=== PATIENT | male | born 1980 | race Caucasian/White ===

== ENCOUNTER 2016-11-09 18:58 | Emergency (ER) | payer SELFPAY ==
[~2016-11-09] VITALS: Ht 177.8 cm; Wt 97.7 kg
[2016-11-09 19:00] VITALS: BP 161/106; PULSE 71; RESP 18; TEMP 98.3; O2SAT 97
[2016-11-09] MEDS ORDERED: SODIUM CHLOR 0.9% 1000 ML INJ 1,000 ML IV SCH (19:28)
[2016-11-09] MEDS ORDERED: ONDANSETRON HCL 4 MG/2 ML VIAL IVP ONE (19:30)
[2016-11-09] MEDS ORDERED: MORPHINE SULFATE 4 MG/ML INJ IV PUSH ONE (19:30)
[2016-11-09] MEDS ORDERED: KETOROLAC TROMETHAMINE 30 MG/ML (IVP) VIAL IVP ONE (19:30)
--- NOTE | 2016-11-09 19:30 | PD ---
HPI Chief Complaint: Flank/Kidney Pain Time Seen by Provider: 19:24 Travel History International Travel<30 days: No Contact w/Intl Traveler<30days: No Traveled to known affect area: No History of Present Illness HPI The patient is a 36-year-old male who presents to the emergency department for right flank pain. The patient developed right flank pain that started earlier today, soaking the mid right back, radiates to the right flank, sharp, intermittent, and associated with nausea and vomiting. The patient does complain of dark-colored urine, however, is unsure if he has any hematuria. He denies any dysuria, frequency, or urgency. The patient does have a history of kidney stones and urinary tract infections in the past. The patient had a stent placed 8 years ago and underwent lithotripsy for a kidney stone that was approximately 5 mm per his report. The patient denies any fever, chills, or sweats. He does have a history of reflux, denies tobacco use noting he quit one and half years ago, and notes previous surgeries are lithotripsy and stent placement. He is allergic to iodine and shellfish. [facility] Past Medical History Narrative Medical Reflux, nephrolithiasis, UTI Genitourinary: Yes (UTI, KIDNEY STONE ) Tetanus Vaccination: > 5 Years Influenza Vaccination: No Past Surgical History Narrative Surgical Stent placement, lithotripsy Surgical History: No Previous Surgery Social History Alcohol Use: Yes Tobacco Use: No Substance Use: No Allergies-Medications (Allergen,Severity, Reaction): Coded Allergies: iodine (Verified Allergy, Severe, 11/09/16) THROAT SWELLING Reported Meds & Prescriptions Reported Meds & Active Scripts Active Reported Zantac (Ranitidine HCl) 150 Mg Tab 150 Mg PO DAILY Review of Systems Except as stated in HPI: all other systems reviewed are Neg General / Constitutional: No: Fever Cardiovascular: No: Chest Pain or Discomfort Respiratory: No: Shortness of Breath Gastrointestinal: Positive: Nausea, Vomiting, Abdominal Pain Genitourinary: Positive: Flank Pain, Other (dark-colored urine) Musculoskeletal: No: Myalgias Skin: No Rash Physical Exam Narrative GENERAL: Awake, alert, pleasant 36-year-old male who appears his stated age and appears in moderate discomfort. SKIN: Focused skin assessment warm/dry. HEAD: Atraumatic. Normocephalic. EYES: Pupils equal and round. No scleral icterus. No injection or drainage. ENT: No nasal bleeding or discharge. Mucous membranes pink and moist. NECK: Trachea midline. No JVD. CARDIOVASCULAR: Regular rate and rhythm. No murmur appreciated. RESPIRATORY: No accessory muscle use. Clear to auscultation. Breath sounds equal bilaterally. GASTROINTESTINAL: Abdomen soft, tender palpation right flank and right lower quadrant. Back: Mild right CVA tenderness. MUSCULOSKELETAL: No obvious deformities. No clubbing. No cyanosis. No edema. NEUROLOGICAL: Awake and alert. No obvious cranial nerve deficits. Motor grossly within normal limits. Normal speech. PSYCHIATRIC: Appropriate mood and affect; insight and judgment normal. Data Data Last Documented VS Vital Signs Date Time Temp Pulse Resp B/P (MAP) Pulse Ox O2 Delivery O2 Flow Rate FiO2 11/09/16 19:44 58 16 150/84 (106) 98 Room Air 11/09/16 19:00 98.3 Orders Orders Complete Blood Count With Diff (11/09/16 19:28) Comprehensive Metabolic Panel (11/09/16 19:28) Lipase (11/09/16 19:28) Urinalysis - C+S If Indicated (11/09/16 19:28) Ct Abd/Pel W/O Iv Contrast (11/09/16 19:28) Iv Access Insert/Monitor (11/09/16 19:28) Ecg Monitoring (11/09/16 19:28) Oximetry (11/09/16 19:28) Morphine Inj (Morphine Inj) (11/09/16 19:30) Ondansetron Inj (Zofran Inj) (11/09/16 19:30) Sodium Chlor 0.9% 1000 Ml Inj (Ns 1000 M (11/09/16 19:28) Sodium Chloride 0.9% Flush (Ns Flush) (11/09/16 19:30) Ketorolac Inj (Toradol Inj) (11/09/16 19:30) Hydromorphone Pf Inj (Dilaudid Pf Inj) (11/09/16 21:00) Urine Culture (11/09/16 19:40) Labs Laboratory Tests Test 11/09/16 19:40 White Blood Count 12.5 TH/MM3 Red Blood Count 4.82 MIL/MM3 Hemoglobin 14.5 GM/DL Hematocrit 43.1 % Mean Corpuscular Volume 89.4 FL Mean Corpuscular Hemoglobin 30.2 PG Mean Corpuscular Hemoglobin Concent 33.8 % Red Cell Distribution Width 13.1 % Platelet Count 256 TH/MM3 Mean Platelet Volume 8.9 FL Neutrophils (%) (Auto) 74.0 % Lymphocytes (%) (Auto) 17.9 % Monocytes (%) (Auto) 6.1 % Eosinophils (%) (Auto) 1.8 % Basophils (%) (Auto) 0.2 % Neutrophils # (Auto) 9.3 TH/MM3 Lymphocytes # (Auto) 2.2 TH/MM3 Monocytes # (Auto) 0.8 TH/MM3 Eosinophils # (Auto) 0.2 TH/MM3 Basophils # (Auto) 0.0 TH/MM3 CBC Comment DIFF FINAL Differential Comment Urine Color LIGHT-RED Urine Turbidity HAZY Urine pH 5.5 Urine Specific Stella 1.034 Urine Protein 30 mg/dL Urine Glucose (UA) NEG mg/dL Urine Ketones NEG mg/dL Urine Occult Blood LARGE Urine Nitrite NEG Urine Bilirubin NEG Urine Urobilinogen LESS THAN 2.0 MG/DL Urine Leukocyte Esterase NEG Urine RBC 17 /hpf Urine WBC 4 /hpf Urine Squamous Epithelial Cells <1 /hpf Urine Bacteria MANY /hpf Urine Mucus MOD /lpf Microscopic Urinalysis Comment CULTURE INDICATED Blood Urea Nitrogen 11 MG/DL Creatinine 1.11 MG/DL Random Glucose 123 MG/DL Albumin 4.3 GM/DL Calcium Level 8.8 MG/DL Aspartate Amino Transf (AST/SGOT) 25 U/L Sodium Level 139 MEQ/L Potassium Level 3.5 MEQ/L Chloride Level 105 MEQ/L Carbon Dioxide Level 26.1 MEQ/L Anion Gap 8 MEQ/L Estimat Glomerular Filtration Rate 74 ML/MIN Lipase 87 U/L [facility] Medical Decision Making Medical Screen Exam Complete: Yes Emergency Medical Condition: Yes Medical Record Reviewed: Yes Interpretation(s) Laboratory Tests Test 11/09/16 19:40 White Blood Count 12.5 TH/MM3 Red Blood Count 4.82 MIL/MM3 Hemoglobin 14.5 GM/DL Hematocrit 43.1 % Mean Corpuscular Volume 89.4 FL Mean Corpuscular Hemoglobin 30.2 PG Mean Corpuscular Hemoglobin Concent 33.8 % Red Cell Distribution Width 13.1 % Platelet Count 256 TH/MM3 Mean Platelet Volume 8.9 FL Neutrophils (%) (Auto) 74.0 % Lymphocytes (%) (Auto) 17.9 % Monocytes (%) (Auto) 6.1 % Eosinophils (%) (Auto) 1.8 % Basophils (%) (Auto) 0.2 % Neutrophils # (Auto) 9.3 TH/MM3 Lymphocytes # (Auto) 2.2 TH/MM3 Monocytes # (Auto) 0.8 TH/MM3 Eosinophils # (Auto) 0.2 TH/MM3 Basophils # (Auto) 0.0 TH/MM3 CBC Comment DIFF FINAL Differential Comment Urine Color LIGHT-RED Urine Turbidity HAZY Urine pH 5.5 Urine Specific Stella 1.034 Urine Protein 30 mg/dL Urine Glucose (UA) NEG mg/dL Urine Ketones NEG mg/dL Urine Occult Blood LARGE Urine Nitrite NEG Urine Bilirubin NEG Urine Urobilinogen LESS THAN 2.0 MG/DL Urine Leukocyte Esterase NEG Urine RBC 17 /hpf Urine WBC 4 /hpf Urine Squamous Epithelial Cells <1 /hpf Urine Bacteria MANY /hpf Urine Mucus MOD /lpf Microscopic Urinalysis Comment CULTURE INDICATED Blood Urea Nitrogen 11 MG/DL Creatinine 1.11 MG/DL Random Glucose 123 MG/DL Albumin 4.3 GM/DL Calcium Level 8.8 MG/DL Aspartate Amino Transf (AST/SGOT) 25 U/L Sodium Level 139 MEQ/L Potassium Level 3.5 MEQ/L Chloride Level 105 MEQ/L Carbon Dioxide Level 26.1 MEQ/L Anion Gap 8 MEQ/L Estimat Glomerular Filtration Rate 74 ML/MIN Lipase 87 U/L Last Impressions Abdomen/Pelvis CT 11/09/161927 Signed Impressions: Service Date/Time: October 20:02 - CONCLUSION: 1. There is a 4 mm stone in the right mid ureter causing mild right hydronephrosis. 2. There is a 2 mm nonobstructing right renal stone and there are 2 nonobstructing left renal stones measuring up to 3 mm. 3. Hepatic steatosis. Davis Liu MD Differential Diagnosis Differential diagnosis includes nephrolithiasis, pyelonephritis, hydronephrosis , appendicitis, diverticulitis, testicular torsion. Narrative Course IV was established, labs were drawn and sent, and the patient was placed on cardiac telemetry monitoring and continuous pulse oximetry monitoring. The patient was administered morphine, Zofran, Toradol, and IV fluids. UA was sent to lab. CT of the abdomen and pelvis without IV contrast was ordered for evaluation of possible nephrolithiasis. UA reveals blood with 17 RBCs. Kidney function is normal. CT of the abdomen and pelvis reveals a 4 mm stone with mild hydronephrosis. The patient was reevaluated, still had moderate pain, therefore, was a security management specialist Dilaudid 1 mg intravenously. The patient was reevaluated at 9:15 PM, his pain had significantly improved. The patient has a ride home. The patient was provided [place] 5 mg orally for pain prior to discharge and will be discharged home on pain medications, Flomax, and Zofran. He is advised to drink plenty fluids, strain urine, follow-up with urology if symptoms persist. The patient agrees and understands. The patient did develop heartburn, has a history of heartburn, requested Zantac. Therefore, the patient was provided a GI cocktail and Zantac. Diagnosis Primary Impression: Nephrolithiasis Patient Instructions: General Instructions Additional Instructions: Please provide a patient a strainer at discharge. Please provide a patient a copy of his CT results and lab results at discharge. Pain medications as directed. Follow-up with urology if symptoms persist. Return if symptoms worsen or progress. Med/Other Pt SpecificInfo: Prescription(s) given Scripts Tamsulosin (Flomax) 0.4 Mg Cap 0.4 MG PO HS for Manage Prostate Problems, #7 CAP 0 Refills Prov: Sergo Ludwig MD 11/09/16 Ibuprofen (Ibuprofen) 600 Mg Tab 600 MG PO Q6H Y for Pain/Inflammation, #20 TAB 0 Refills Prov: Sergo Ludwig MD 11/09/16 Ondansetron (Zofran) 4 Mg Tab 4 MG PO Q6HR Y for NAUSEA OR VOMITING for 7 Days, TAB 0 Refills Prov: Sergo Ludwig MD 11/09/16 Hydrocodone-Acetaminophen ([place]) 10-325 Mg Tab 1 TAB PO Q6H Y for PAIN for 20 Days, TAB 0 Refills Prov: Sergo Ludwig MD 11/09/16 Disposition: 01 DISCHARGE HOME Condition: Stable Sergo Ludwig MD Nov 09, 2016 19:30
[2016-11-09 19:44] VITALS: BP 150/84; PULSE 58; RESP 16; O2SAT 98
[2016-11-09] MEDS ORDERED: ZANT150T2 PO (19:59)
--- NOTE | 2016-11-09 20:22 | RADRPT ---
EXAM DATE/TIME: 11/09/2016 20:02 [facility] COMPARISON: No previous studies available for comparison. INDICATIONS : Right flank pain. ORAL CONTRAST: No oral contrast ingested. RADIATION DOSE: 8.52 CTDIvol (mGy) MEDICAL HISTORY : Renal calculi. SURGICAL HISTORY : None. ENCOUNTER: Initial ACUITY: 1 day PAIN SCALE: 8/10 LOCATION: Right flank TECHNIQUE: Volumetric scanning of the abdomen and pelvis was performed. Using automated exposure control and ad justment of the mA and/or kV according to patient size, radiation dose was kept as low as reasonably achievable to obtain optimal diagnostic quality images. DICOM format image data is available electro nically for review and comparison. FINDINGS: LOWER LUNGS: The visualized lower lungs are clear. LIVER: Mild diffuse low density without lesion. There is no dilation of the biliary tree. No calcified gal lstones. SPLEEN: Normal size without lesion. PANCREAS: Within normal limits. KIDNEYS: Normal in size and shape. There is mild right hydronephrosis caused by a 4 mm stone in the right mid ureter. There also is a 2 mm nonobstructing right renal stone present and there are 2 nonobstructing left renal stones measuring up to 3 mm. There is a 13 mm left renal cyst. ADRENAL GLANDS: Within normal limits. VASCULAR: There is no aortic aneurysm. There is mild atherosclerotic disease. BOWEL/MESENTERY: The stomach, small bowel, and colon demonstrate no acute abnormality. There is no free intraperitone al air or fluid. The appendix is normal. ABDOMINAL WALL: Within normal limits. RETROPERITONEUM: There is no lymphadenopathy. BLADDER: No wall thickening or mass. REPRODUCTIVE: Within normal limits. INGUINAL: There is no lymphadenopathy or hernia. MUSCULOSKELETAL: No acute abnormality. CONCLUSION: 1. There is a 4 mm stone in the right mid ureter causing mild right hydronephrosis. 2. There is a 2 mm nonobstructing right renal stone and there are 2 nonobstructing left renal stones measuring up to 3 mm. 3. Hepatic steatosis. Davis Liu MD on November 09, 2016 at 20:17 Board Certified Radiologist. This report was verified electronically.
[2016-11-09 20:50] LABS: AUTOMATED NEUTROPHIL # 9.3 TH/MM3 (1.8-7.7); BASOPHIL % 0.2 % (0.0-2.0); EOSINOPHIL # 0.2 TH/MM3 (0-0.4); EOSINOPHIL % 1.8 % (0.0-4.0); HEMATOCRIT 43.1 % (39.0-51.0); HEMO FLAGS DIFF FINAL; LYMPH % 17.9 % (9.0-44.0); LYMPHOCYTE # 2.2 TH/MM3 (1.0-4.8); MEAN CELL VOLUME 89.4 FL (80.0-100.0); MEAN CORPUSCULAR HEMOGLOBIN 30.2 PG (27.0-34.0); MEAN CORPUSCULAR HGB CONC 33.8 % (32.0-36.0); MONO % 6.1 % (0.0-8.0); PLATELET COUNT 256 TH/MM3 (150-450); RED BLOOD COUNT 4.82 MIL/MM3 (4.50-5.90); RED CELL DISTRIBUTION WIDTH 13.1 % (11.6-17.2); WHITE BLOOD COUNT 12.5 TH/MM3 (4.0-11.0)
[2016-11-09 20:58] LABS: BACTERIA, URINE MANY /hpf; BLOOD, URINE LARGE (NEG); COMMENT (UR) CULTURE INDICATED; CULTURE IF INDICATED CULTURE INDICATED; GLUCOSE,URINE NEG (NEG); KETONE, URINE NEG (NEG); MUCUS URINE MOD /lpf (OCC); NITRITE,URINE NEG (NEG); PH, URINE 5.5 (5.0-8.5); SQUAMOUS EPITHELIAL CELL URINE <1 /hpf (0-5)
[2016-11-09 20:59] LABS: URINE COLOR LIGHT-RED (YELLW/STRAW)
[2016-11-09] MEDS ORDERED: HYDROmorphone HCL PF 1 MG/ML VIAL IV PUSH ONE (21:00)
[2016-11-09] MEDS: SODIUM CHLORIDE 0.9% FLUSH 10 ML FLUSH IV FLUSH PRN ×3 (21:06→22:32)
[2016-11-09 21:08] LABS: ANION GAP 8 MEQ/L (5-15); AST (GOT) 25 U/L (15-37); BICARBONATE 26.1 MEQ/L (21.0-32.0); BLOOD UREA NITROGEN 11 MG/DL (7-18); CHLORIDE 105 MEQ/L (98-107); GLOMERULAR FILTRATION RATE 74 ML/MIN (>89); POTASSIUM 3.5 MEQ/L (3.5-5.1); SODIUM (NA) 139 MEQ/L (136-145)
[2016-11-09] MEDS ORDERED: IBUP-232 PO (21:22)
[2016-11-09] MEDS ORDERED: ZOFR4TAB PO (21:22)
[2016-11-09] MEDS ORDERED: HYDR-3366 PO (21:22)
[2016-11-09] MEDS ORDERED: TAMS5CAP PO (21:22)
[2016-11-09 21:24] LABS: ALKALINE PHOSPHATASE 66 U/L (45-117); ALT (GPT) 68 U/L (12-78); TOTAL BILIRUBIN ADULT 0.4 MG/DL (0.2-1.0)
[2016-11-09] MEDS ORDERED: ACETAMINOPHEN/HYDROcodone 325 MG/5 MG TAB PO ONE (21:30)
[2016-11-09] MEDS ORDERED: LIDOCAINE VISCOUS 2% SOLN 15 ML UDC PO ONE (21:30)
[2016-11-09] MEDS ORDERED: FAMOTIDINE 20 MG TAB PO ONE (21:30)
[2016-11-09] MEDS ORDERED: ALUMINUM/MAGNESIUM/SIMETH 30 ML CUP PO ONE (21:30)
[2016-11-09 21:50] VITALS: BP 134/85
== END 2016-11-09 22:45 | disposition home or self-care (01) ==
LOC: NEPC 18:58
DX: N20.0 Calculus of kidney (principal)
CPT/HCPCS: 74176; 80053; 81001; 83690; 85025; 87086; 96361; 96374; 96375; 99285; J1170; J1885; J2270; J2405; J7030